=== PATIENT | female | born 1970 | race Caucasian/White ===

== ENCOUNTER 2019-07-05 20:16 | Inpatient (IN) | payer OTHER ==
[~2019-07-05] VITALS: Ht 172.7 cm; Wt 111.3 kg
[2019-07-05 20:16] VITALS: BP_SYST 113
[2019-07-05 21:22] LABS: BASOPHILS % (AUTO) 0.5 % (0.0-2.0); EOSINOPHILS # (AUTO) 0.2 K/uL (0.0-0.4); EOSINOPHILS % (AUTO) 3.9 % (0.0-4.0); HEMATOCRIT 40.5 % (36-48); HEMOGLOBIN 13.6 g/dL (12.0-16.0); LYMPHOCYTES # (AUTO) 1.5 K/uL (1.0-5.5); LYMPHOCYTES % (AUTO) 31.4 % (20.5-51.5); MEAN CORPUSCULAR HEMOGLOBIN 33 pg (27-31); MEAN CORPUSCULAR HGB CONC 34 % (32-36); MEAN CORPUSCULAR VOLUME 97 fL (79.0-98.0); MONOCYTES # (AUTO) 0.5 K/uL (0.0-1.0); MONOCYTES % (AUTO) 9.5 % (1.7-9.3); NEUTROPHILS # (AUTO) 2.6 K/uL (1.8-7.7); NEUTROPHILS % (AUTO) 54.7 % (40.0-70.0); PLATELET COUNT (AUTO) 149 K/uL (130-430); RED BLOOD CELL COUNT(AUTO) 4.16 MIL/uL (4.2-6.2); WHITE BLOOD COUNT (AUTO) 4.7 K/uL (4.8-10.8)
[2019-07-05 21:30] LABS: ANION GAP 9 (5-15); CALCIUM 9.3 mg/dL (8.4-11.0); CHLORIDE 105 mmol/L (98-107); CREATININE 1.58 mg/dL (0.55-1.30); GLUCOSE 82 mg/dL (70-99); POTASSIUM 3.6 mmol/L (3.5-5.1); SODIUM SERUM 138 mmol/L (136-145); UREA NITROGEN, BLOOD 19 mg/dL (8-21)
[2019-07-05 21:32] LABS: GFR AFRICAN AMERICAN 45 mL/min (>90)
[2019-07-05 21:45] LABS: ALANINE AMINOTRANSFERASE 27 U/L (12-78); ALBUMIN 3.8 g/dL (3.4-4.8); ASPARTATE AMINOTRANSFERASE 32 U/L (10-37); FREE T4 (FREE THYROXINE) 0.7 ng/dl (0.8-1.5); THYROID STIMULATING HORMONE 12.02 uIu/mL (0.36-3.74); TOTAL BILIRUBIN 0.4 mg/dL (0.0-1.0)
[2019-07-05 21:46] LABS: ACETAMINOPHEN < 1 ug/mL (1-30); ALCOHOL, BLOOD < 3 mg/dL (<10); PROTHROMBIN TIME 10.2 SECS (9.5-12.5)
[2019-07-05 22:23] LABS: CKMB RELATIVE INDEX 1.5 (0.0-2.9); CREATINE KINASE MB 3.1 ng/mL (0-3.6)
[2019-07-05] MEDS ORDERED: ALLO100T PO (22:31)
[2019-07-05] MEDS ORDERED: INSU100V9 SQ (22:32)
[2019-07-05] MEDS ORDERED: LORA1TAB PO (22:32)
[2019-07-05] MEDS ORDERED: VITA1CAP PO (22:32)
[2019-07-05] MEDS ORDERED: OMEG1CAP75 PO (22:32)
[2019-07-05] MEDS ORDERED: LIP10 PO (22:32)
[2019-07-05] MEDS ORDERED: SENN-278 (22:32)
[2019-07-05] MEDS ORDERED: DITXL5 PO (22:32)
[2019-07-05] MEDS ORDERED: ASPI-1155 PO (22:32)
[2019-07-05] MEDS ORDERED: POLY17PO4 PO (22:32)
[2019-07-05] MEDS ORDERED: LIDOINT TP (22:32)
[2019-07-05] MEDS ORDERED: OMEP40CA33 PO (22:32)
[2019-07-05] MEDS ORDERED: DULO60CA41 PO (22:32)
[2019-07-05] MEDS ORDERED: PEDI0.2517 PO (22:32)
[2019-07-05] MEDS ORDERED: TOPI100T39 PO (22:32)
[2019-07-05] MEDS ORDERED: QUET100T33 PO (22:32)
[2019-07-05] MEDS ORDERED: METO25TA3 PO (22:32)
[2019-07-05] MEDS ORDERED: BACL20TA PO (22:32)
[2019-07-05] MEDS ORDERED: GABA-533 PO (22:32)
[2019-07-05] MEDS ORDERED: PRO20 PO (22:32)
[2019-07-05] MEDS ORDERED: NEU400 PO (22:32)
[2019-07-05] MEDS ORDERED: MORP15TA PO (22:32)
[2019-07-05] MEDS ORDERED: LORA-259 PO (22:32)
[2019-07-05] MEDS ORDERED: BUDE6HFA INH (22:32)
[2019-07-05] MEDS ORDERED: POTA8TAB4 PO (22:32)
[2019-07-05] MEDS ORDERED: TOPXL100 PO (22:32)
[2019-07-05] MEDS ORDERED: ZOLP10TA2 PO (22:32)
[2019-07-05] MEDS ORDERED: MELA3TAB64 PO (22:32)
[2019-07-05] MEDS ORDERED: DICL50TA9 PO (22:32)
[2019-07-05] MEDS ORDERED: UMEC1BLS IH (22:32)
[2019-07-05] MEDS ORDERED: TRIH2TAB3 PO (22:32)
[2019-07-05] MEDS ORDERED: GLUC1VIA IJ (22:32)
[2019-07-05] MEDS ORDERED: SITA100T11 PO (22:32)
[2019-07-05] MEDS ORDERED: LACT10SO6 PO (22:32)
[2019-07-05] MEDS ORDERED: LORazepam 1 MG TABLET PO PRN (23:30)
[2019-07-05] MEDS ORDERED: ZOLPIDEM TARTRATE 5 MG TABLET PO PRN (23:30)
[2019-07-06] VITALS (7 sets, daily range): BP systolic 102–121
[2019-07-06] MEDS ORDERED: IPRATROPIUM/ALBUTEROL SULFATE 3 ML AMPUL.NEB (DUONEB) INH PRN (00:15)
[2019-07-06] MEDS: NACL 0.9% 1,000 ML IV SCH ×2 (00:24→15:18)
[2019-07-06] MEDS: LEVOTHYROXINE SODIUM 0.025 MG TABLET PO SCH (06:08)
[2019-07-06] MEDS: PANTOPRAZOLE SODIUM 40 MG TAB PO SCH (06:08)
[2019-07-06 07:55] LABS: BASOPHILS % (AUTO) 0.7 % (0.0-2.0); EOSINOPHILS # (AUTO) 0.2 K/uL (0.0-0.4); EOSINOPHILS % (AUTO) 5.2 % (0.0-4.0); HEMATOCRIT 40.7 % (36-48); HEMOGLOBIN 13.4 g/dL (12.0-16.0); LYMPHOCYTES # (AUTO) 1.2 K/uL (1.0-5.5); LYMPHOCYTES % (AUTO) 28.8 % (20.5-51.5); MEAN CORPUSCULAR HEMOGLOBIN 33 pg (27-31); MEAN CORPUSCULAR HGB CONC 33 % (32-36); MEAN CORPUSCULAR VOLUME 99 fL (79.0-98.0); MONOCYTES # (AUTO) 0.5 K/uL (0.0-1.0); MONOCYTES % (AUTO) 11.9 % (1.7-9.3); NEUTROPHILS # (AUTO) 2.1 K/uL (1.8-7.7); NEUTROPHILS % (AUTO) 53.4 % (40.0-70.0); PLATELET COUNT (AUTO) 127 K/uL (130-430); RED BLOOD CELL COUNT(AUTO) 4.12 MIL/uL (4.2-6.2); RED CELL DISTRIBUTION WIDTH 15.1 % (9.0-15.0)
[2019-07-06 08:16] LABS: ANION GAP 8 (5-15); CALCIUM 8.8 mg/dL (8.4-11.0); CHLORIDE 107 mmol/L (98-107); GLUCOSE 127 mg/dL (70-99); POTASSIUM 3.7 mmol/L (3.5-5.1); SODIUM SERUM 140 mmol/L (136-145); UREA NITROGEN, BLOOD 19 mg/dL (8-21)
[2019-07-06 08:24] LABS: GFR AFRICAN AMERICAN 44 mL/min (>90)
[2019-07-06] MEDS ORDERED: FLUoxetine HCL 20 MG CAPSULE (PROzac) PO SCH (09:00)
[2019-07-06] MEDS ORDERED: LIDOCAINE TOPICAL OINT 5%, 35 GM TP SCH (09:00)
[2019-07-06] MEDS: POLYETHYLENE GLYCOL 3350, 17 GM/ POWD.PACK PO SCH (09:00)
[2019-07-06] MEDS ORDERED: OXYBUTYNIN CHLORIDE 5 MG XL TAB PO SCH (09:00)
[2019-07-06] MEDS: VITAMIN B COMPLEX 1 CAP/TAB PO SCH (09:00)
[2019-07-06] MEDS ORDERED: OMEPRAZOLE Non-Formulary 20 MG CAPSULE.DR PO SCH (09:00)
[2019-07-06] MEDS: POTASSIUM CHLORIDE 8 MEQ TABLET.SA PO SCH (09:01)
[2019-07-06] MEDS: BACLOFEN 10 MG TABLET PO SCH (09:01)
[2019-07-06] MEDS: TRIHEXYPHENIDYL HCL 2 MG TABLET (ARTANE) PO SCH ×2 (09:01→21:05)
[2019-07-06] MEDS: ALLOPURINOL 100 MG TABLET (ZYLOPRIM) PO SCH (09:01)
[2019-07-06] MEDS: LORazepam 1 MG TABLET PO SCH ×3 (09:01→20:58)
[2019-07-06] MEDS: TOPIRAMATE 100 MG TABLET(Topamax) PO SCH ×2 (09:02→20:58)
[2019-07-06] MEDS: METOPROLOL SUCCINATE 25 MG TAB.SR.24H (TOPROL XL) PO SCH (09:02)
[2019-07-06] MEDS: ASPIRIN 81 MG TAB.CHEW PO SCH (09:02)
[2019-07-06] MEDS: ATORVASTATIN 10 MG TABLET PO SCH (09:02)
[2019-07-06] MEDS: OXYBUTYNIN CHLORIDE 5 MG TABLET PO SCH ×2 (09:04→21:05)
[2019-07-06] MEDS: DULoxetine HCL 30 MG CAPSULE.DR (CYMBALTA) PO SCH (09:56)
[2019-07-06] MEDS: LIDOCAINE PATCH 5% 1 EA TP SCH (09:56)
[2019-07-06] MEDS ORDERED: BUDESONIDE/FORMOTEROL 160-4.5 mCg, 6 GM INHALER INH SCH (10:00)
[2019-07-06] MEDS ORDERED: ALBUTEROL SULFATE 0.083% 2.5 MG/3 ML VIAL.NEB INH ONE (10:15)
[2019-07-06] MEDS ORDERED: BUDESONIDE 0.5 MG/2 ML AMPUL.NEB INH ONE (10:15)
[2019-07-06] MEDS ORDERED: LACTULOSE 20 GM/30 ML UDC PO ONE (10:15)
[2019-07-06] MEDS: INSULIN REGULAR, HUMAN 100 UNITS/ML, 10 ML VIAL (humuLIN R) SUBCUT PRN ×3 (11:31→21:00)
[2019-07-06] MEDS: ALBUTEROL SULFATE 0.083% 2.5 MG/3 ML VIAL.NEB INH SCH ×2 (13:00→19:47)
[2019-07-06] MEDS: LACTULOSE 20 GM/30 ML UDC PO SCH ×2 (15:18→15:22)
[2019-07-06 15:39] LABS: BILIRUBIN,URINE NEGATIVE (NEGATIVE); BLOOD, URINE NEGATIVE (NEGATIVE); CLARITY/URINE CLOUDY (CLEAR); COLOR,URINE YELLOW (YELLOW); GLUCOSE,URINE NEGATIVE (NEGATIVE); KETONES,URINE NEGATIVE (NEGATIVE); LEUKOCYTE ESTERASE ,URINE 3+ (NEGATIVE); NITRITE, URINE NEGATIVE (NEGATIVE); PROTEIN URINE NEGATIVE (NEGATIVE)
[2019-07-06 15:55] LABS: BACTERIA,URINE MANY /HPF (None Seen); RBC,URINE 0-3 /HPF (0-3); WBC,URINE 20-50 /HPF (0-3)
[2019-07-06 15:56] LABS: MUCUS,URINE None Seen /LPF (None Seen)
[2019-07-06 16:27] LABS: OPIATE, URINE POSITIVE (NEG <=100)
[2019-07-06 16:28] LABS: BARBITURATE, URINE NEGATIVE (NEG <=200); BENZODIAZEPINE, URINE POSITIVE (NEG <=150); CANNABINOID, URINE NEGATIVE (NEG <=50); COCAINE, URINE NEGATIVE (NEG <=150); METHAMPHETAMINES SCREEN,URINE NEGATIVE (NEG <=500); PHENCYCLIDINE SCREEN,URINE NEGATIVE (NEG <=25); UR TRICYCLIC ANTIDEPRESSANTS POSITIVE (NEG <=300); URINE AMPHETAMINE NEGATIVE (NEG <=500); URINE METHADONE NEGATIVE (NEG <=200); URINE OXYCODONE SCREEN NEGATIVE (NEG <=100); URINE PROPOXYPHENE SCREEN NEGATIVE (NEG <=300)
[2019-07-06] MEDS: BUDESONIDE 0.5 MG/2 ML AMPUL.NEB INH SCH (19:50)
[2019-07-06] MEDS: GABAPENTIN 400 MG CAPSULE PO SCH (20:57)
[2019-07-06] MEDS: QUEtiapine FUMARATE 100 MG TABLET PO SCH (20:58)
[2019-07-06] MEDS: MELATONIN 3 MG TABLET PO SCH (21:05)
[2019-07-06] MEDS: MEROPENEM 1 GM in NS 100 ML IV SCH (21:06)
[2019-07-07] MEDS: ALBUTEROL SULFATE 0.083% 2.5 MG/3 ML VIAL.NEB INH SCH ×4 (01:00→19:35)
[2019-07-07] MEDS: NACL 0.9% 1,000 ML IV SCH ×2 (01:55→03:20)
[2019-07-07] MEDS: MEROPENEM 1 GM in NS 100 ML IV SCH ×3 (05:22→21:56)
[2019-07-07] MEDS: LEVOTHYROXINE SODIUM 0.025 MG TABLET PO SCH (06:08)
[2019-07-07] MEDS: PANTOPRAZOLE SODIUM 40 MG TAB PO SCH (06:08)
[2019-07-07] MEDS: INSULIN REGULAR, HUMAN 100 UNITS/ML, 10 ML VIAL (humuLIN R) SUBCUT PRN ×4 (06:11→21:57)
[2019-07-07 07:35] LABS: BASOPHILS % (AUTO) 0.3 % (0.0-2.0); EOSINOPHILS # (AUTO) 0.1 K/uL (0.0-0.4); MONOCYTES # (AUTO) 0.3 K/uL (0.0-1.0); RED BLOOD CELL COUNT(AUTO) 3.92 MIL/uL (4.2-6.2); WHITE BLOOD COUNT (AUTO) 4.7 K/uL (4.8-10.8)
[2019-07-07] MEDS: BUDESONIDE 0.5 MG/2 ML AMPUL.NEB INH SCH ×2 (07:37→19:59)
[2019-07-07 07:39] LABS: EOSINOPHILS % (AUTO) 2.1 % (0.0-4.0); HEMATOCRIT 38.3 % (36-48); HEMOGLOBIN 12.8 g/dL (12.0-16.0); LYMPHOCYTES % (AUTO) 20.5 % (20.5-51.5); MEAN CORPUSCULAR HEMOGLOBIN 33 pg (27-31); MEAN CORPUSCULAR HGB CONC 33 % (32-36); MEAN CORPUSCULAR VOLUME 98 fL (79.0-98.0); MONOCYTES % (AUTO) 7.1 % (1.7-9.3); NEUTROPHILS # (AUTO) 3.3 K/uL (1.8-7.7); PLATELET COUNT (AUTO) 128 K/uL (130-430); RED CELL DISTRIBUTION WIDTH 14.5 % (9.0-15.0)
[2019-07-07 07:44] LABS: CALCIUM 8.5 mg/dL (8.4-11.0); CREATININE 1.44 mg/dL (0.55-1.30); POTASSIUM 3.9 mmol/L (3.5-5.1)
[2019-07-07] MEDS: POLYETHYLENE GLYCOL 3350, 17 GM/ POWD.PACK PO SCH (09:00)
[2019-07-07] MEDS: LACTULOSE 20 GM/30 ML UDC PO SCH ×4 (09:00→21:02)
[2019-07-07 09:29] VITALS: BP_SYST 113
[2019-07-07] MEDS: LIDOCAINE PATCH 5% 1 EA TP SCH (09:30)
[2019-07-07] MEDS: TRIHEXYPHENIDYL HCL 2 MG TABLET (ARTANE) PO SCH ×2 (09:30→21:03)
[2019-07-07] MEDS: VITAMIN B COMPLEX 1 CAP/TAB PO SCH (09:30)
[2019-07-07] MEDS: ALLOPURINOL 100 MG TABLET (ZYLOPRIM) PO SCH (09:31)
[2019-07-07] MEDS: METOPROLOL SUCCINATE 25 MG TAB.SR.24H (TOPROL XL) PO SCH (09:31)
[2019-07-07] MEDS: ASPIRIN 81 MG TAB.CHEW PO SCH (09:31)
[2019-07-07] MEDS: LORazepam 1 MG TABLET PO SCH ×3 (09:31→21:02)
[2019-07-07] MEDS: TOPIRAMATE 100 MG TABLET(Topamax) PO SCH ×2 (09:31→21:03)
[2019-07-07] MEDS: BACLOFEN 10 MG TABLET PO SCH (09:32)
[2019-07-07] MEDS: OXYBUTYNIN CHLORIDE 5 MG TABLET PO SCH ×2 (09:32→21:04)
[2019-07-07] MEDS: ATORVASTATIN 10 MG TABLET PO SCH (09:32)
[2019-07-07] MEDS: DULoxetine HCL 30 MG CAPSULE.DR (CYMBALTA) PO SCH (09:32)
[2019-07-07] MEDS: POTASSIUM CHLORIDE 8 MEQ TABLET.SA PO SCH (09:32)
[2019-07-07] MEDS: INSULIN GLARGINE 100 UNITS/ML 10 ML VIAL SUBCUT SCH (10:50)
[2019-07-07] MEDS ORDERED: FLUoxetine HCL 20 MG CAPSULE (PROzac) PO ONE (11:00)
[2019-07-07 12:39] VITALS: BP_SYST 130
[2019-07-07 15:06] VITALS: BP_SYST 134
[2019-07-07 20:30] VITALS: BP_SYST 144
[2019-07-07] MEDS: GABAPENTIN 400 MG CAPSULE PO SCH (21:02)
[2019-07-07] MEDS: QUEtiapine FUMARATE 100 MG TABLET PO SCH (21:03)
[2019-07-07] MEDS: MELATONIN 3 MG TABLET PO SCH (21:04)
[2019-07-07 23:55] VITALS: BP_SYST 148
[2019-07-08] MEDS: ALBUTEROL SULFATE 0.083% 2.5 MG/3 ML VIAL.NEB INH SCH ×4 (00:50→19:00)
[2019-07-08] MEDS: MEROPENEM 1 GM in NS 100 ML IV SCH ×3 (06:41→22:21)
[2019-07-08] MEDS: NACL 0.9% 1,000 ML IV SCH ×2 (06:43→17:44)
[2019-07-08] MEDS: LEVOTHYROXINE SODIUM 0.025 MG TABLET PO SCH (06:44)
[2019-07-08] MEDS: PANTOPRAZOLE SODIUM 40 MG TAB PO SCH (06:45)
[2019-07-08] MEDS: INSULIN REGULAR, HUMAN 100 UNITS/ML, 10 ML VIAL (humuLIN R) SUBCUT PRN ×4 (06:57→22:42)
[2019-07-08] MEDS: BUDESONIDE 0.5 MG/2 ML AMPUL.NEB INH SCH ×2 (07:13→19:00)
[2019-07-08] MEDS ORDERED: FLUoxetine HCL 20 MG CAPSULE (PROzac) PO SCH (09:00)
[2019-07-08] MEDS: LACTULOSE 20 GM/30 ML UDC PO SCH ×3 (09:00→22:03)
[2019-07-08] MEDS: POLYETHYLENE GLYCOL 3350, 17 GM/ POWD.PACK PO SCH (09:00)
[2019-07-08] MEDS: LIDOCAINE PATCH 5% 1 EA TP SCH (09:08)
[2019-07-08] MEDS: FLUoxetine HCL 10 MG CAPSULE (PROzac) PO SCH (09:10)
[2019-07-08] MEDS: ASPIRIN 81 MG TAB.CHEW PO SCH (09:10)
[2019-07-08] MEDS: METOPROLOL SUCCINATE 25 MG TAB.SR.24H (TOPROL XL) PO SCH (09:11)
[2019-07-08] MEDS: ALLOPURINOL 100 MG TABLET (ZYLOPRIM) PO SCH (09:11)
[2019-07-08] MEDS: LORazepam 1 MG TABLET PO SCH ×3 (09:11→22:04)
[2019-07-08] MEDS: OXYBUTYNIN CHLORIDE 5 MG TABLET PO SCH ×2 (09:12→22:20)
[2019-07-08] MEDS: VITAMIN B COMPLEX 1 CAP/TAB PO SCH (09:12)
[2019-07-08] MEDS: BACLOFEN 10 MG TABLET PO SCH (09:12)
[2019-07-08] MEDS: ATORVASTATIN 10 MG TABLET PO SCH (09:12)
[2019-07-08] MEDS: TOPIRAMATE 100 MG TABLET(Topamax) PO SCH ×2 (09:13→22:03)
[2019-07-08] MEDS: DULoxetine HCL 30 MG CAPSULE.DR (CYMBALTA) PO SCH ×2 (09:13→22:03)
[2019-07-08] MEDS: POTASSIUM CHLORIDE 8 MEQ TABLET.SA PO SCH (09:13)
[2019-07-08] MEDS: TRIHEXYPHENIDYL HCL 2 MG TABLET (ARTANE) PO SCH ×2 (09:14→22:21)
[2019-07-08] MEDS: INSULIN GLARGINE 100 UNITS/ML 10 ML VIAL SUBCUT SCH (09:30)
[2019-07-08 11:18] VITALS: BP_SYST 148
[2019-07-08 15:29] VITALS: BP_SYST 132
[2019-07-08] MEDS ORDERED: BALSAM PERU/CASTOR OIL 60 GM OINT...G. TP SCH (17:00)
[2019-07-08] MEDS: MORPHINE SULFATE 30 MG Immediate Release TABLET PO PRN (17:54)
[2019-07-08 19:00] VITALS: BP_SYST 135
[2019-07-08] MEDS: QUEtiapine FUMARATE 100 MG TABLET PO SCH (22:04)
[2019-07-08] MEDS: GABAPENTIN 400 MG CAPSULE PO SCH (22:06)
[2019-07-08] MEDS: MELATONIN 3 MG TABLET PO SCH (22:20)
[2019-07-09 00:12] VITALS: BP_SYST 124
[2019-07-09] MEDS: ALBUTEROL SULFATE 0.083% 2.5 MG/3 ML VIAL.NEB INH SCH ×4 (00:48→19:00)
[2019-07-09] MEDS: MEROPENEM 1 GM in NS 100 ML IV SCH ×3 (05:19→22:07)
[2019-07-09] MEDS: BUDESONIDE 0.5 MG/2 ML AMPUL.NEB INH SCH ×2 (07:33→19:00)
[2019-07-09 08:00] VITALS: BP_SYST 146
[2019-07-09] MEDS: LACTULOSE 20 GM/30 ML UDC PO SCH ×3 (09:00→20:20)
[2019-07-09] MEDS: BALSAM PERU/CASTOR OIL 60 GM OINT...G. TP SCH (09:00)
[2019-07-09] MEDS: POTASSIUM CHLORIDE 8 MEQ TABLET.SA PO SCH (10:55)
[2019-07-09] MEDS: ASPIRIN 81 MG TAB.CHEW PO SCH (10:55)
[2019-07-09] MEDS: DULoxetine HCL 30 MG CAPSULE.DR (CYMBALTA) PO SCH ×2 (10:55→20:16)
[2019-07-09] MEDS: BACLOFEN 10 MG TABLET PO SCH (10:55)
[2019-07-09] MEDS: ATORVASTATIN 10 MG TABLET PO SCH (10:55)
[2019-07-09] MEDS: TOPIRAMATE 100 MG TABLET(Topamax) PO SCH ×2 (10:57→20:17)
[2019-07-09] MEDS: METOPROLOL SUCCINATE 25 MG TAB.SR.24H (TOPROL XL) PO SCH (10:57)
[2019-07-09] MEDS: LIDOCAINE PATCH 5% 1 EA TP SCH (10:57)
[2019-07-09] MEDS: ALLOPURINOL 100 MG TABLET (ZYLOPRIM) PO SCH (10:57)
[2019-07-09] MEDS: LORazepam 1 MG TABLET PO SCH ×3 (10:58→20:17)
[2019-07-09] MEDS: NACL 0.9% 1,000 ML IV SCH ×2 (11:00→22:09)
[2019-07-09] MEDS: FLUoxetine HCL 10 MG CAPSULE (PROzac) PO SCH (11:04)
[2019-07-09] MEDS: VITAMIN B COMPLEX 1 CAP/TAB PO SCH (11:04)
[2019-07-09] MEDS: OXYBUTYNIN CHLORIDE 5 MG TABLET PO SCH ×2 (11:19→20:17)
[2019-07-09] MEDS: INSULIN GLARGINE 100 UNITS/ML 10 ML VIAL SUBCUT SCH (11:20)
[2019-07-09] MEDS: INSULIN REGULAR, HUMAN 100 UNITS/ML, 10 ML VIAL (humuLIN R) SUBCUT PRN ×2 (11:45→19:39)
[2019-07-09 12:31] VITALS: BP_SYST 97
[2019-07-09 17:09] VITALS: BP_SYST 101
[2019-07-09] MEDS: TRIHEXYPHENIDYL HCL 2 MG TABLET (ARTANE) PO SCH ×2 (17:09→20:20)
[2019-07-09 20:00] VITALS: BP_SYST 137
[2019-07-09] MEDS: QUEtiapine FUMARATE 100 MG TABLET PO SCH (20:16)
[2019-07-09] MEDS: MELATONIN 3 MG TABLET PO SCH (20:17)
[2019-07-09] MEDS: GABAPENTIN 400 MG CAPSULE PO SCH (20:17)
[2019-07-09] MEDS: MORPHINE SULFATE 30 MG Immediate Release TABLET PO PRN (20:31)
[2019-07-10] MEDS: ALBUTEROL SULFATE 0.083% 2.5 MG/3 ML VIAL.NEB INH SCH ×4 (01:00→20:35)
[2019-07-10 01:49] VITALS: BP_SYST 129
[2019-07-10] MEDS: LEVOTHYROXINE SODIUM 0.025 MG TABLET PO SCH ×2 (06:22→07:00)
[2019-07-10] MEDS: PANTOPRAZOLE SODIUM 40 MG TAB PO SCH ×2 (06:22→07:00)
[2019-07-10] MEDS: INSULIN REGULAR, HUMAN 100 UNITS/ML, 10 ML VIAL (humuLIN R) SUBCUT PRN ×3 (06:25→17:53)
[2019-07-10] MEDS: MEROPENEM 1 GM in NS 100 ML IV SCH ×3 (06:27→20:50)
[2019-07-10] MEDS: BUDESONIDE 0.5 MG/2 ML AMPUL.NEB INH SCH ×2 (07:00→20:35)
[2019-07-10] MEDS: LORazepam 1 MG TABLET PO SCH ×3 (08:39→20:51)
[2019-07-10] MEDS: POTASSIUM CHLORIDE 8 MEQ TABLET.SA PO SCH (08:39)
[2019-07-10] MEDS: ALLOPURINOL 100 MG TABLET (ZYLOPRIM) PO SCH (08:39)
[2019-07-10] MEDS: BACLOFEN 10 MG TABLET PO SCH (08:40)
[2019-07-10] MEDS: FLUoxetine HCL 10 MG CAPSULE (PROzac) PO SCH (08:40)
[2019-07-10] MEDS: TOPIRAMATE 100 MG TABLET(Topamax) PO SCH ×2 (08:43→20:52)
[2019-07-10] MEDS: TRIHEXYPHENIDYL HCL 2 MG TABLET (ARTANE) PO SCH ×2 (08:43→20:50)
[2019-07-10] MEDS: LIDOCAINE PATCH 5% 1 EA TP SCH (08:43)
[2019-07-10] MEDS: DULoxetine HCL 30 MG CAPSULE.DR (CYMBALTA) PO SCH ×2 (08:43→20:51)
[2019-07-10] MEDS: VITAMIN B COMPLEX 1 CAP/TAB PO SCH (08:43)
[2019-07-10] MEDS: ASPIRIN 81 MG TAB.CHEW PO SCH (08:43)
[2019-07-10] MEDS: ATORVASTATIN 10 MG TABLET PO SCH (08:45)
[2019-07-10] MEDS: LACTULOSE 20 GM/30 ML UDC PO SCH ×3 (08:51→21:00)
[2019-07-10] MEDS: OXYBUTYNIN CHLORIDE 5 MG TABLET PO SCH ×2 (08:59→20:51)
[2019-07-10] MEDS: BALSAM PERU/CASTOR OIL 60 GM OINT...G. TP SCH (09:00)
[2019-07-10] MEDS: METOPROLOL SUCCINATE 25 MG TAB.SR.24H (TOPROL XL) PO SCH (09:00)
[2019-07-10] MEDS: INSULIN GLARGINE 100 UNITS/ML 10 ML VIAL SUBCUT SCH (09:03)
[2019-07-10] MEDS: NACL 0.9% 1,000 ML IV SCH (12:00)
[2019-07-10 15:16] VITALS: BP_SYST 119
[2019-07-10 20:00] VITALS: BP_SYST 123
[2019-07-10] MEDS: GABAPENTIN 400 MG CAPSULE PO SCH (20:50)
[2019-07-10] MEDS: QUEtiapine FUMARATE 100 MG TABLET PO SCH (20:51)
[2019-07-10] MEDS: MELATONIN 3 MG TABLET PO SCH (20:54)
[2019-07-11 00:40] VITALS: BP_SYST 155
[2019-07-11] MEDS: ALBUTEROL SULFATE 0.083% 2.5 MG/3 ML VIAL.NEB INH SCH ×4 (01:00→19:51)
[2019-07-11] MEDS: NACL 0.9% 1,000 ML IV SCH ×2 (02:12→15:47)
[2019-07-11] MEDS: PANTOPRAZOLE SODIUM 40 MG TAB PO SCH (06:05)
[2019-07-11] MEDS: MEROPENEM 1 GM in NS 100 ML IV SCH ×3 (06:05→21:40)
[2019-07-11] MEDS: LEVOTHYROXINE SODIUM 0.025 MG TABLET PO SCH (06:06)
[2019-07-11] MEDS: INSULIN REGULAR, HUMAN 100 UNITS/ML, 10 ML VIAL (humuLIN R) SUBCUT PRN ×3 (06:11→17:30)
[2019-07-11] MEDS: BUDESONIDE 0.5 MG/2 ML AMPUL.NEB INH SCH ×2 (07:00→19:52)
[2019-07-11 08:00] VITALS: BP_SYST 115
[2019-07-11] MEDS: OXYBUTYNIN CHLORIDE 5 MG TABLET PO SCH ×2 (09:00→21:39)
[2019-07-11] MEDS: LACTULOSE 20 GM/30 ML UDC PO SCH ×4 (09:00→21:37)
[2019-07-11] MEDS: LIDOCAINE PATCH 5% 1 EA TP SCH (09:20)
[2019-07-11] MEDS: LORazepam 1 MG TABLET PO SCH ×3 (09:20→21:38)
[2019-07-11] MEDS: VITAMIN B COMPLEX 1 CAP/TAB PO SCH (09:21)
[2019-07-11] MEDS: METOPROLOL SUCCINATE 25 MG TAB.SR.24H (TOPROL XL) PO SCH (09:21)
[2019-07-11] MEDS: BACLOFEN 10 MG TABLET PO SCH (09:21)
[2019-07-11] MEDS: ASPIRIN 81 MG TAB.CHEW PO SCH (09:21)
[2019-07-11] MEDS: TRIHEXYPHENIDYL HCL 2 MG TABLET (ARTANE) PO SCH ×2 (09:21→21:46)
[2019-07-11] MEDS: ALLOPURINOL 100 MG TABLET (ZYLOPRIM) PO SCH (09:21)
[2019-07-11] MEDS: FLUoxetine HCL 10 MG CAPSULE (PROzac) PO SCH (09:21)
[2019-07-11] MEDS: ATORVASTATIN 10 MG TABLET PO SCH (09:22)
[2019-07-11] MEDS: POTASSIUM CHLORIDE 8 MEQ TABLET.SA PO SCH (09:22)
[2019-07-11] MEDS: TOPIRAMATE 100 MG TABLET(Topamax) PO SCH ×2 (09:22→21:39)
[2019-07-11] MEDS: DULoxetine HCL 30 MG CAPSULE.DR (CYMBALTA) PO SCH ×2 (09:22→21:38)
[2019-07-11] MEDS: INSULIN GLARGINE 100 UNITS/ML 10 ML VIAL SUBCUT SCH (09:25)
[2019-07-11] MEDS: BALSAM PERU/CASTOR OIL 60 GM OINT...G. TP SCH (09:26)
[2019-07-11 16:20] VITALS: BP_SYST 129
[2019-07-11 19:00] VITALS: BP_SYST 126
[2019-07-11 21:00] VITALS: BP_SYST 120
[2019-07-11] MEDS: GABAPENTIN 400 MG CAPSULE PO SCH (21:38)
[2019-07-11] MEDS: QUEtiapine FUMARATE 100 MG TABLET PO SCH (21:39)
[2019-07-11] MEDS: MELATONIN 3 MG TABLET PO SCH (21:45)
[2019-07-12 01:21] VITALS: BP_SYST 125
[2019-07-12] MEDS: ALBUTEROL SULFATE 0.083% 2.5 MG/3 ML VIAL.NEB INH SCH ×3 (01:40→13:00)
[2019-07-12] MEDS: LEVOTHYROXINE SODIUM 0.025 MG TABLET PO SCH (05:59)
[2019-07-12] MEDS: PANTOPRAZOLE SODIUM 40 MG TAB PO SCH (05:59)
[2019-07-12] MEDS: MEROPENEM 1 GM in NS 100 ML IV SCH ×3 (06:00→22:51)
[2019-07-12] MEDS: NACL 0.9% 1,000 ML IV SCH ×3 (06:01→23:44)
[2019-07-12] MEDS: INSULIN REGULAR, HUMAN 100 UNITS/ML, 10 ML VIAL (humuLIN R) SUBCUT PRN ×4 (06:14→23:17)
[2019-07-12] MEDS: BUDESONIDE 0.5 MG/2 ML AMPUL.NEB INH SCH (07:00)
[2019-07-12 08:00] VITALS: BP_SYST 117
[2019-07-12] MEDS: TRIHEXYPHENIDYL HCL 2 MG TABLET (ARTANE) PO SCH ×2 (08:49→22:48)
[2019-07-12] MEDS: FLUoxetine HCL 10 MG CAPSULE (PROzac) PO SCH (08:49)
[2019-07-12] MEDS: BALSAM PERU/CASTOR OIL 60 GM OINT...G. TP SCH (08:49)
[2019-07-12] MEDS: LIDOCAINE PATCH 5% 1 EA TP SCH (08:49)
[2019-07-12] MEDS: ASPIRIN 81 MG TAB.CHEW PO SCH (08:50)
[2019-07-12] MEDS: BACLOFEN 10 MG TABLET PO SCH (08:50)
[2019-07-12] MEDS: POTASSIUM CHLORIDE 8 MEQ TABLET.SA PO SCH (08:50)
[2019-07-12] MEDS: DULoxetine HCL 30 MG CAPSULE.DR (CYMBALTA) PO SCH ×2 (08:50→22:48)
[2019-07-12] MEDS: ATORVASTATIN 10 MG TABLET PO SCH (08:54)
[2019-07-12] MEDS: VITAMIN B COMPLEX 1 CAP/TAB PO SCH (08:55)
[2019-07-12] MEDS: ALLOPURINOL 100 MG TABLET (ZYLOPRIM) PO SCH (08:55)
[2019-07-12] MEDS: TOPIRAMATE 100 MG TABLET(Topamax) PO SCH ×2 (08:55→22:49)
[2019-07-12] MEDS: LORazepam 1 MG TABLET PO SCH ×3 (08:55→22:48)
[2019-07-12] MEDS: METOPROLOL SUCCINATE 25 MG TAB.SR.24H (TOPROL XL) PO SCH (08:56)
[2019-07-12] MEDS: OXYBUTYNIN CHLORIDE 5 MG TABLET PO SCH ×2 (08:56→22:50)
[2019-07-12] MEDS: LACTULOSE 20 GM/30 ML UDC PO SCH ×4 (09:00→21:00)
[2019-07-12] MEDS: INSULIN GLARGINE 100 UNITS/ML 10 ML VIAL SUBCUT SCH (09:09)
[2019-07-12 10:52] VITALS: BP_SYST 125
[2019-07-12 12:42] VITALS: BP_SYST 107
[2019-07-12 16:23] VITALS: BP_SYST 117
[2019-07-12] MEDS: MELATONIN 3 MG TABLET PO SCH (22:47)
[2019-07-12] MEDS: GABAPENTIN 400 MG CAPSULE PO SCH (22:50)
[2019-07-12] MEDS: QUEtiapine FUMARATE 100 MG TABLET PO SCH (22:50)
[2019-07-13 00:27] VITALS: BP_SYST 110
[2019-07-13] MEDS: MEROPENEM 1 GM in NS 100 ML IV SCH (06:34)
[2019-07-13] MEDS: BUDESONIDE 0.5 MG/2 ML AMPUL.NEB INH SCH ×3 (07:00→19:55)
[2019-07-13] MEDS: LEVOTHYROXINE SODIUM 0.025 MG TABLET PO SCH (07:31)
[2019-07-13] MEDS: PANTOPRAZOLE SODIUM 40 MG TAB PO SCH (07:31)
[2019-07-13] MEDS: ALBUTEROL SULFATE 0.083% 2.5 MG/3 ML VIAL.NEB INH SCH ×3 (07:39→19:55)
[2019-07-13] MEDS: INSULIN REGULAR, HUMAN 100 UNITS/ML, 10 ML VIAL (humuLIN R) SUBCUT PRN ×4 (07:53→22:34)
[2019-07-13 09:00] VITALS: BP_SYST 121
[2019-07-13] MEDS: LACTULOSE 20 GM/30 ML UDC PO SCH ×3 (09:00→21:00)
[2019-07-13] MEDS: VITAMIN B COMPLEX 1 CAP/TAB PO SCH (09:43)
[2019-07-13] MEDS: DULoxetine HCL 30 MG CAPSULE.DR (CYMBALTA) PO SCH ×2 (09:43→21:17)
[2019-07-13] MEDS: BACLOFEN 10 MG TABLET PO SCH (09:43)
[2019-07-13] MEDS: OXYBUTYNIN CHLORIDE 5 MG TABLET PO SCH ×2 (09:43→21:17)
[2019-07-13] MEDS: ASPIRIN 81 MG TAB.CHEW PO SCH (09:43)
[2019-07-13] MEDS: ATORVASTATIN 10 MG TABLET PO SCH (09:44)
[2019-07-13] MEDS: TOPIRAMATE 100 MG TABLET(Topamax) PO SCH ×2 (09:44→21:16)
[2019-07-13] MEDS: ALLOPURINOL 100 MG TABLET (ZYLOPRIM) PO SCH (09:44)
[2019-07-13] MEDS: METOPROLOL SUCCINATE 25 MG TAB.SR.24H (TOPROL XL) PO SCH (09:50)
[2019-07-13] MEDS: POTASSIUM CHLORIDE 8 MEQ TABLET.SA PO SCH (09:50)
[2019-07-13] MEDS: TRIHEXYPHENIDYL HCL 2 MG TABLET (ARTANE) PO SCH ×2 (09:52→22:27)
[2019-07-13] MEDS: LIDOCAINE PATCH 5% 1 EA TP SCH (09:52)
[2019-07-13] MEDS: LORazepam 1 MG TABLET PO SCH ×3 (09:53→21:16)
[2019-07-13] MEDS: INSULIN GLARGINE 100 UNITS/ML 10 ML VIAL SUBCUT SCH (09:59)
[2019-07-13] MEDS: FLUoxetine HCL 10 MG CAPSULE (PROzac) PO SCH (10:04)
[2019-07-13] MEDS: BALSAM PERU/CASTOR OIL 60 GM OINT...G. TP SCH (10:10)
[2019-07-13 11:23] VITALS: BP_SYST 129
[2019-07-13 15:04] VITALS: BP_SYST 127
[2019-07-13] MEDS: NACL 0.9% 1,000 ML IV SCH (15:38)
[2019-07-13 20:00] VITALS: BP_SYST 103
[2019-07-13] MEDS: GABAPENTIN 400 MG CAPSULE PO SCH (21:16)
[2019-07-13] MEDS: QUEtiapine FUMARATE 100 MG TABLET PO SCH (21:17)
[2019-07-13] MEDS: MELATONIN 3 MG TABLET PO SCH (22:27)
[2019-07-14] MEDS: ALBUTEROL SULFATE 0.083% 2.5 MG/3 ML VIAL.NEB INH SCH ×3 (01:00→20:30)
[2019-07-14] MEDS: LEVOTHYROXINE SODIUM 0.025 MG TABLET PO SCH (06:37)
[2019-07-14] MEDS: PANTOPRAZOLE SODIUM 40 MG TAB PO SCH (06:37)
[2019-07-14] MEDS: NACL 0.9% 1,000 ML IV SCH ×2 (06:38→20:36)
[2019-07-14] MEDS: INSULIN REGULAR, HUMAN 100 UNITS/ML, 10 ML VIAL (humuLIN R) SUBCUT PRN ×4 (07:00→20:46)
[2019-07-14 08:21] LABS: BASOPHILS % (AUTO) 0.5 % (0.0-2.0); EOSINOPHILS # (AUTO) 0.2 K/uL (0.0-0.4); EOSINOPHILS % (AUTO) 3.8 % (0.0-4.0); HEMATOCRIT 43.4 % (36-48); HEMOGLOBIN 14.6 g/dL (12.0-16.0); LYMPHOCYTES # (AUTO) 1.2 K/uL (1.0-5.5); LYMPHOCYTES % (AUTO) 22.4 % (20.5-51.5); MEAN CORPUSCULAR HEMOGLOBIN 32 pg (27-31); MEAN CORPUSCULAR HGB CONC 34 % (32-36); MEAN CORPUSCULAR VOLUME 96 fL (79.0-98.0); MONOCYTES # (AUTO) 0.5 K/uL (0.0-1.0); MONOCYTES % (AUTO) 9.1 % (1.7-9.3); NEUTROPHILS # (AUTO) 3.5 K/uL (1.8-7.7); NEUTROPHILS % (AUTO) 64.2 % (40.0-70.0); PLATELET COUNT (AUTO) 118 K/uL (130-430); RED BLOOD CELL COUNT(AUTO) 4.52 MIL/uL (4.2-6.2); RED CELL DISTRIBUTION WIDTH 14.5 % (9.0-15.0); WHITE BLOOD COUNT (AUTO) 5.4 K/uL (4.8-10.8)
[2019-07-14 08:29] LABS: CALCIUM 8.9 mg/dL (8.4-11.0); CREATININE 1.05 mg/dL (0.55-1.30); POTASSIUM 4.1 mmol/L (3.5-5.1)
[2019-07-14] MEDS: BUDESONIDE 0.5 MG/2 ML AMPUL.NEB INH SCH ×2 (08:30→19:00)
[2019-07-14] MEDS: LACTULOSE 20 GM/30 ML UDC PO SCH ×3 (09:00→20:39)
[2019-07-14 09:10] VITALS: BP_SYST 123
[2019-07-14] MEDS: DULoxetine HCL 30 MG CAPSULE.DR (CYMBALTA) PO SCH ×2 (09:12→20:37)
[2019-07-14] MEDS: LIDOCAINE PATCH 5% 1 EA TP SCH (09:12)
[2019-07-14] MEDS: FLUoxetine HCL 10 MG CAPSULE (PROzac) PO SCH (09:13)
[2019-07-14] MEDS: BACLOFEN 10 MG TABLET PO SCH (09:13)
[2019-07-14] MEDS: ATORVASTATIN 10 MG TABLET PO SCH (09:13)
[2019-07-14] MEDS: TOPIRAMATE 100 MG TABLET(Topamax) PO SCH ×2 (09:13→20:38)
[2019-07-14] MEDS: LORazepam 1 MG TABLET PO SCH ×3 (09:13→20:38)
[2019-07-14] MEDS: POTASSIUM CHLORIDE 8 MEQ TABLET.SA PO SCH (09:13)
[2019-07-14] MEDS: ASPIRIN 81 MG TAB.CHEW PO SCH (09:13)
[2019-07-14] MEDS: ALLOPURINOL 100 MG TABLET (ZYLOPRIM) PO SCH (09:13)
[2019-07-14] MEDS: METOPROLOL SUCCINATE 25 MG TAB.SR.24H (TOPROL XL) PO SCH (09:13)
[2019-07-14] MEDS: VITAMIN B COMPLEX 1 CAP/TAB PO SCH (09:14)
[2019-07-14] MEDS: TRIHEXYPHENIDYL HCL 2 MG TABLET (ARTANE) PO SCH ×2 (09:14→20:36)
[2019-07-14] MEDS: OXYBUTYNIN CHLORIDE 5 MG TABLET PO SCH ×2 (09:14→20:38)
[2019-07-14] MEDS: INSULIN GLARGINE 100 UNITS/ML 10 ML VIAL SUBCUT SCH (09:17)
[2019-07-14] MEDS: BALSAM PERU/CASTOR OIL 60 GM OINT...G. TP SCH (09:23)
[2019-07-14 12:40] VITALS: BP_SYST 137
[2019-07-14 18:05] VITALS: BP_SYST 146
[2019-07-14 19:40] VITALS: BP_SYST 117
[2019-07-14] MEDS: GABAPENTIN 400 MG CAPSULE PO SCH (20:38)
[2019-07-14] MEDS: QUEtiapine FUMARATE 100 MG TABLET PO SCH (20:38)
[2019-07-14] MEDS: MELATONIN 3 MG TABLET PO SCH (20:38)
[2019-07-15 00:06] VITALS: BP_SYST 139
[2019-07-15] MEDS: LEVOTHYROXINE SODIUM 0.025 MG TABLET PO SCH (06:23)
[2019-07-15] MEDS: PANTOPRAZOLE SODIUM 40 MG TAB PO SCH (06:23)
[2019-07-15] MEDS: INSULIN REGULAR, HUMAN 100 UNITS/ML, 10 ML VIAL (humuLIN R) SUBCUT PRN ×4 (06:26→22:18)
[2019-07-15] MEDS: BUDESONIDE 0.5 MG/2 ML AMPUL.NEB INH SCH ×2 (07:00→19:00)
[2019-07-15] MEDS: ALBUTEROL SULFATE 0.083% 2.5 MG/3 ML VIAL.NEB INH SCH ×3 (07:00→19:00)
[2019-07-15] MEDS: LACTULOSE 20 GM/30 ML UDC PO SCH ×3 (09:00→21:00)
[2019-07-15] MEDS: VITAMIN B COMPLEX 1 CAP/TAB PO SCH (09:53)
[2019-07-15] MEDS: DULoxetine HCL 30 MG CAPSULE.DR (CYMBALTA) PO SCH ×2 (09:53→22:19)
[2019-07-15] MEDS: LORazepam 1 MG TABLET PO SCH ×2 (09:54→15:00)
[2019-07-15] MEDS: ATORVASTATIN 10 MG TABLET PO SCH (09:54)
[2019-07-15] MEDS: FLUoxetine HCL 10 MG CAPSULE (PROzac) PO SCH (09:54)
[2019-07-15] MEDS: ALLOPURINOL 100 MG TABLET (ZYLOPRIM) PO SCH (09:54)
[2019-07-15] MEDS: POTASSIUM CHLORIDE 8 MEQ TABLET.SA PO SCH (09:54)
[2019-07-15] MEDS: TRIHEXYPHENIDYL HCL 2 MG TABLET (ARTANE) PO SCH ×2 (09:55→22:21)
[2019-07-15] MEDS: ASPIRIN 81 MG TAB.CHEW PO SCH (09:55)
[2019-07-15] MEDS: BACLOFEN 10 MG TABLET PO SCH (09:55)
[2019-07-15] MEDS: TOPIRAMATE 100 MG TABLET(Topamax) PO SCH ×2 (09:55→22:20)
[2019-07-15] MEDS: METOPROLOL SUCCINATE 25 MG TAB.SR.24H (TOPROL XL) PO SCH (09:56)
[2019-07-15] MEDS: INSULIN GLARGINE 100 UNITS/ML 10 ML VIAL SUBCUT SCH (10:16)
[2019-07-15] MEDS: OXYBUTYNIN CHLORIDE 5 MG TABLET PO SCH ×2 (10:18→22:20)
[2019-07-15] MEDS: LIDOCAINE PATCH 5% 1 EA TP SCH (10:18)
[2019-07-15 11:07] VITALS: BP_SYST 114
[2019-07-15] MEDS: BALSAM PERU/CASTOR OIL 60 GM OINT...G. TP SCH ×2 (12:07→18:39)
[2019-07-15 12:47] VITALS: BP_SYST 118
[2019-07-15] MEDS: NACL 0.9% 1,000 ML IV SCH (13:00)
[2019-07-15 16:30] VITALS: BP_SYST 116
[2019-07-15 20:00] VITALS: BP_SYST 130
[2019-07-15] MEDS: QUEtiapine FUMARATE 100 MG TABLET PO SCH (22:20)
[2019-07-15] MEDS: GABAPENTIN 400 MG CAPSULE PO SCH (22:22)
[2019-07-15] MEDS: MELATONIN 3 MG TABLET PO SCH (22:31)
[2019-07-16 00:28] VITALS: BP_SYST 112
[2019-07-16] MEDS: NACL 0.9% 1,000 ML IV SCH ×2 (01:18→12:37)
[2019-07-16] MEDS: LEVOTHYROXINE SODIUM 0.025 MG TABLET PO SCH (06:46)
[2019-07-16] MEDS: PANTOPRAZOLE SODIUM 40 MG TAB PO SCH (06:46)
[2019-07-16] MEDS: INSULIN REGULAR, HUMAN 100 UNITS/ML, 10 ML VIAL (humuLIN R) SUBCUT PRN ×2 (06:51→12:44)
[2019-07-16] MEDS: BUDESONIDE 0.5 MG/2 ML AMPUL.NEB INH SCH (07:00)
[2019-07-16] MEDS: ALBUTEROL SULFATE 0.083% 2.5 MG/3 ML VIAL.NEB INH SCH ×2 (07:00→13:00)
[2019-07-16 08:15] VITALS: BP_SYST 136
[2019-07-16] MEDS: LACTULOSE 20 GM/30 ML UDC PO SCH ×2 (09:00→15:00)
[2019-07-16] MEDS: OXYBUTYNIN CHLORIDE 5 MG TABLET PO SCH (10:11)
[2019-07-16] MEDS: VITAMIN B COMPLEX 1 CAP/TAB PO SCH (10:11)
[2019-07-16] MEDS: POTASSIUM CHLORIDE 8 MEQ TABLET.SA PO SCH (10:12)
[2019-07-16] MEDS: BACLOFEN 10 MG TABLET PO SCH (10:12)
[2019-07-16] MEDS: TOPIRAMATE 100 MG TABLET(Topamax) PO SCH (10:12)
[2019-07-16] MEDS: ATORVASTATIN 10 MG TABLET PO SCH (10:12)
[2019-07-16] MEDS: ALLOPURINOL 100 MG TABLET (ZYLOPRIM) PO SCH (10:12)
[2019-07-16] MEDS: DULoxetine HCL 30 MG CAPSULE.DR (CYMBALTA) PO SCH (10:12)
[2019-07-16] MEDS: ASPIRIN 81 MG TAB.CHEW PO SCH (10:12)
[2019-07-16] MEDS: FLUoxetine HCL 10 MG CAPSULE (PROzac) PO SCH (10:12)
[2019-07-16] MEDS: METOPROLOL SUCCINATE 25 MG TAB.SR.24H (TOPROL XL) PO SCH (10:13)
[2019-07-16] MEDS: TRIHEXYPHENIDYL HCL 2 MG TABLET (ARTANE) PO SCH (10:13)
[2019-07-16] MEDS: LIDOCAINE PATCH 5% 1 EA TP SCH (10:14)
[2019-07-16] MEDS: INSULIN GLARGINE 100 UNITS/ML 10 ML VIAL SUBCUT SCH (10:24)
[2019-07-16 12:30] VITALS: BP_SYST 116
[2019-07-16 13:59] VITALS: BP_SYST 114
[2019-07-16 16:13] VITALS: BP_SYST 122
== END 2019-07-16 17:30 | DRG 690 ==
LOC: SED 20:16 → STU 23:20 → SMU 07-07 11:02
PROVIDERS: ADMIT Family Medicine; ATTEND Family Medicine
DX: N39.0 Urinary tract infection, site not specified (principal); F25.9 Schizoaffective disorder, unspecified; F31.9 Bipolar disorder, unspecified; E03.9 Hypothyroidism, unspecified; I12.9 Hypertensive chronic kidney disease with stage 1 through stage 4 chronic kidney disease, or unspecified chronic kidney disease; E11.22 Type 2 diabetes mellitus with diabetic chronic kidney disease; E11.51 Type 2 diabetes mellitus with diabetic peripheral angiopathy without gangrene; N18.3 Chronic kidney disease, stage 3 (moderate); I25.10 Atherosclerotic heart disease of native coronary artery without angina pectoris; J44.9 Chronic obstructive pulmonary disease, unspecified; K70.30 Alcoholic cirrhosis of liver without ascites; N31.9 Neuromuscular dysfunction of bladder, unspecified; E66.01 Morbid (severe) obesity due to excess calories; M10.9 Gout, unspecified; K21.9 Gastro-esophageal reflux disease without esophagitis; G89.29 Other chronic pain; F41.9 Anxiety disorder, unspecified; B19.20 Unspecified viral hepatitis C without hepatic coma; Z79.899 Other long term (current) drug therapy; Z68.37 Body mass index [BMI] 37.0-37.9, adult; Z87.891 Personal history of nicotine dependence; Z91.81 History of falling; Z88.8 Allergy status to other drugs, medicaments and biological substances; Z88.1 Allergy status to other antibiotic agents
CPT/HCPCS: 36415; 70450-TC; 80048; 80053; 80307; 81000-TC; 82140-TC; 82550-TC; 82553-TC; 82962; 83735-TC; 84439; 84443-TC; 84484; 85025; 85610-TC; 85730-TC; 87081; 87086; 87186-TC; 93005; 94640; 94760; 99285; G0378; G0480; G0481; G0482; J1815; J2185; J2274; J7030; J7613; J7626